=== PATIENT | male | born 1980 | race African-American/Black ===

== ENCOUNTER 2021-05-03 10:19 | Observation (INO) ==
[2021-05-03 10:25] VITALS: BMI 33.2
[2021-05-03] MEDS ORDERED: ASPIRIN 81 MG CHEWTAB PO STA (10:56)
--- NOTE | 2021-05-03 10:56 | DR.CP ---
HPI Time Seen Time Seen by Provider: 05/03/21 10:49 HPI Comment HPI Comment: PATIENT WITH A HISTORY OF DIABETES, HYPERTENSION AND CONGESTIVE HEART FAILURE, COMPLAINS OF ANTERIOR CHEST PAIN CONSTANT FOR 3 DAYS. PAIN SCALE 7/10, PAIN WORSE UPON INSPIRATION AND MOTION OF TORSO. HAS OCCASIONAL DYSPNEA AN D DIZZINESS. Complaint Chief Complaint Doctor Comments: CHEST PAIN Chief Complaint:: Pt c/o chest pain since Monday. He states he has had some dizziness and shortness of breath but denies these complaints at present. Pt sta van pain worsens with movement, coughing and palapation. COVID-19 Coronavirus risk:travel/contact w/high risk person: No Has patient experienced Coronavirus symptoms: No Reviewed Nurses Notes Review: Yes Source History Provided: Patient Mode of Arrival Mode of Arrival: Stretcher Timing Onset of Chief Complaint: 05/28/21 Came on: Gradually Duration Duration: Constant Location Location of Chest Pain: Left Chest Pain Radiation Location: Left Shoulder Context Cardiac Risk Factors: HTN, Diabetes and Other (CONGESTIVE HEART FAILURE) Prehospital Care: None Quality Quality: Sharp Severity Severity: Moderate Modifying Factors Worsens: Breathing and Movement Impoves: Nothing Associated Signs and Symptoms Associated Signs and Symptoms: Shortness of Breath PMH PMH Past Medical History: Yes Past Medical History: CHF, Diabetes and Hypertension Past Surgical History: Yes Past Surgical History Comment: scar tissue removal Family History History of Family Medical Conditions: Yes Family Medical History: Diabetes Mellitus Social History Does patient currently use any type of tobacco product: No Have you used tobacco products in the last 12 months: No Type of Tobacco Use: None Does any household member use tobacco: No Alcohol Use: None Do you use any recreational Drugs:: No Lives With: Other Lives [facility] Travel Risk Coronavirus risk:travel/contact w/high risk person: No Has patient experienced Coronavirus symptoms: No Infectious screening In the last 2 months have you had wt loss of >10#?: NO Have you had fever, night sweats or hemotysis?: No Have you traveled outside the country in the last 6 months?: No Isolation: Standard ROS Review of Systems Constitutional: No Symptoms Reported Eyes: No Symptoms Reported ENTM: No Symptoms Reported Respiratoy: Short of Breath Cardiovascular: Chest Pain Gastrointestinal/Abdominal: No Symptoms Reported Genitourinary: No Symptoms Reported Neurological: No Symptoms Reported Musculoskeletal: No Symptoms Reported Integumentary: No Symptoms Reported Hematologic/Lymphatic: No Symptoms Reported Endocrine: No Symptoms Reported Psychiatric: No Symptoms Reported All Other Systems: Reviewed and Negative PE Vitals Vitals: Temperature 98.3 F Pulse Rate 84 Respiratory Rate 18 Blood Pressure 114/59 O2 Sat by Pulse Oximetry 98 General Limitations: No Limitations General Appearance: Alert and In No Apparent Distress Head Head Exam: Normal Inspection and Atraumatic Eyes Eye exam: Normal Appearance and PERRL ENT ENT Exam: Normal Exam and Normal Oropharynx Chest Chest Inspection: Normal Inspection and Tenderness (PARASTERNAL TENDERNESS T-2 TO T-5) Respiratory Respiratory Exam: Normal Lung Sounds Bilat Respiratory Exam: Bilateral: Clear to Auscultation Cardiovascular Cardiovascular Exam: Regular Rate and Normal Rhythm Pulse: Normal and Radial Edema: Normal Abdominal Exam Abdominal Exam: Normal Inspection, Normal Bowel Sounds and Soft Extremities Extremities Exam: Normal Inspection and Full ROM Back Back Exam: Normal Inspection and Full ROM Psychiatric Psychiatric Exam: Normal Affect and Normal Mood Skin Skin Exam: Warm and Dry MDM Differential Diagnosis Differential Diagnosis: Angina, Chest Wall Pain, Costochondritis, Myocardial Infarction, Pericarditis and Pneumonia COURSE Treatment Treatment: , IV NORMAL SALINE 50ML/HR, GIVEN ASPIRIN 324MG ORALLY, NTG 0.4MG SL, PAIN IMPROVED, TORADOL 30MG IV Reevaluation 1st: Improved Consultation Call Returned: 13:30 Consultation Comments: DISCUSSED FINDINGS WITH DR WYATT FOR OBSERVATION Education/Counseling Educated On: Treatment and Diagnosis ROR Labs Reviewed Laboratory Results Reviewed?: Yes Result Diagrams: 05/03/21 11:10 05/03/21 11:10 Laboratory: WBC 3.7 X10^3/uL (3.6-10.0) 05/03/21 11:10 RBC 4.48 X10^6/uL (4.7-6.0) L 05/03/21 11:10 Hgb 12.6 g/dL (13.5-18.0) L 05/03/21 11:10 Hct 36.6 % (42.0-54.0) L 05/03/21 11:10 MCV 81.8 fL (80.0-100.0) 05/03/21 11:10 MCH 28.0 pg (27.0-34.0) 05/03/21 11:10 MCHC 34.3 g/dL (33.0-35.0) 05/03/21 11:10 RDW 13.5 % (11.6-16.5) 05/03/21 11:10 Plt Count 224 X10^3/uL (150.0-450.0) 05/03/21 11:10 MPV 7.6 fL (7.4-11.0) 05/03/21 11:10 Neut % (Auto) 53.8 % (42.0-75.0) 05/03/21 11:10 Lymph % (Auto) 30.9 % (21.0-51.0) 05/03/21 11:10 [place] % (Auto) 12.3 % (0.0-13.0) 05/03/21 11:10 Eos % (Auto) 2.5 % (0.9-2.9) 05/03/21 11:10 Baso % (Auto) 0.5 % (0.2-1.0) 05/03/21 11:10 Neut # (Auto) 2.0 x10^3/uL (2.2-4.8) L 05/03/21 11:10 Lymph # (Auto) 1.1 X10^3/uL (1.3-2.9) L 05/03/21 11:10 [place] # (Auto) 0.5 x10^3/uL (0.3-0.8) 05/03/21 11:10 Eos # (Auto) 0.1 x10^3/uL (0.0-0.2) 05/03/21 11:10 Baso # (Auto) 0.0 X10^3/uL (0.0-0.1) 05/03/21 11:10 Absolute Nucleated RBC 0.0 /100WBC 05/03/21 11:10 PT 13.0 SECONDS (11.8-14.3) 05/03/21 11:10 INR Target Range - 05/03/21 11:10 INR 1.03 (0.8-1.3) 05/03/21 11:10 D-Dimer 0.30 ug/ml (0.0-0.57) 05/03/21 11:10 Sodium 136 mmol/L (136-145) 05/03/21 11:10 Corrected Sodium 139 mmol/L (136-145) 05/03/21 11:10 Potassium 4.2 mmol/L (3.5-5.1) 05/03/21 11:10 Chloride 101 mmol/L (98-107) 05/03/21 11:10 Carbon Dioxide 28.3 mmol/L (21-32) 05/03/21 11:10 BUN 13 mg/dL (7-18) 05/03/21 11:10 Creatinine 0.90 mg/dL (0.70-1.30) 05/03/21 11:10 Est GFR (MDRD) Af Amer > 60 (>60) 05/03/21 11:10 Est GFR (MDRD) Non-Af > 60 (>60) 05/03/21 11:10 Glucose 223 mg/dL (65-99) H 05/03/21 11:10 Calcium 8.8 mg/dL (8.5-10.1) 05/03/21 11:10 Corrected Calcium TNP 05/03/21 11:10 Total Bilirubin 0.50 mg/dL (0.2-1.0) 05/03/21 11:10 AST 19 Units/L (15-37) 05/03/21 11:10 ALT 29 Units/L (12-78) 05/03/21 11:10 Alkaline Phosphatase 50 Units/L (46-116) 05/03/21 11:10 Troponin I < 0.02 ng/mL (0-1.5) 05/03/21 14:29 B-Natriuretic Peptide 17.4 pg/mL (0-79) 05/03/21 11:10 Total Protein 8.3 g/dL (6.4-8.2) H 05/03/21 11:10 Albumin 3.5 g/dL (3.4-5.0) 05/03/21 11:10 Globulin 4.8 g/dL (2.5-4.5) H 05/03/21 11:10 Albumin/Globulin Ratio 0.7 Ratio (1.1-2.1) L 05/03/21 11:10 XRAY X-ray Results: PORT CHEST XRAY C/W NO ACUTE PROCESS EKG Rate: 92 [place]: Normal Rhythm: NSR and ST ST: Nonsp (EARLY REPOLARIZATION) Opioid Opioid Risk Tool Age ([place] box if 16-45): No History of Preadolescent Sexual Abuse: No Total: 0 Total Score Risk Category: Low Risk Copyright: Uribe LR predicting aberrant behaviors Diagnosis Discharge Problem: Acute chest pain
[2021-05-03] MEDS ORDERED: NS 1000 ML 1,000 ML IV STA (10:59)
[2021-05-03] MEDS ORDERED: ASPIRIN 81 MG CHEWTAB ONE (11:09)
[2021-05-03] MEDS ORDERED: NS 1000 ML 1,000 ML ONE (11:10)
[2021-05-03] MEDS ORDERED: NITROSTAT ONE (11:17)
[2021-05-03] MEDS: NITROSTAT SL PRN ×2 (11:18→11:33)
--- NOTE | 2021-05-03 11:20 | RAD ---
HISTORYDYSPNEASTUDYCHEST, 1 VIEWCOMPARISONNone available.FINDINGSThe trachea is midline. The cardiac silhouette is borderline enlarged.The lungs are clear without focal infiltrate or effusion.The bony thorax is unremarkable.IMPRESSIONNo acute cardiopulmonary disease.Electronically signed by: SADIE MUHAMMAD III (May 03, 2021 11:18:32)
[2021-05-03 11:38] LABS: BASOPHILS % (AUTO) 0.5 % (0.2-1.0); EOSINOPHILS # (AUTO) 0.1 x10^3/uL (0.0-0.2); EOSINOPHILS % (AUTO) 2.5 % (0.9-2.9); HEMATOCRIT 36.6 % (42.0-54.0); HEMOGLOBIN 12.6 g/dL (13.5-18.0); LYMPHOCYTES # (AUTO) 1.1 X10^3/uL (1.3-2.9); LYMPHOCYTES % (AUTO) 30.9 % (21.0-51.0); MEAN CORPUSCULAR HGB CONC 34.3 g/dL (33.0-35.0); MEAN CORPUSCULAR VOLUME 81.8 fL (80.0-100.0); MEAN PLATELET VOLUME 7.6 fL (7.4-11.0); MONOCYTES # (AUTO) 0.5 x10^3/uL (0.3-0.8); MONOCYTES % (AUTO) 12.3 % (0.0-13.0); NEUTROPHILS % (AUTO) 53.8 % (42.0-75.0); PLATELET COUNT 224 X10^3/uL (150.0-450.0); RED BLOOD COUNT 4.48 X10^6/uL (4.7-6.0); RED CELL DISTRIBUTION WIDTH 13.5 % (11.6-16.5); WHITE BLOOD COUNT 3.7 X10^3/uL (3.6-10.0)
[2021-05-03 11:53] LABS: ALANINE AMINOTRANSFERASE 29 Units/L (12-78); ALBUMIN 3.5 g/dL (3.4-5.0); ALKALINE PHOSPHATASE 50 Units/L (46-116); ASPARTATE AMINO TRANSFERASE 19 Units/L (15-37); BLOOD UREA NITROGEN 13 mg/dL (7-18); CALCIUM 8.8 mg/dL (8.5-10.1); CARBON DIOXIDE 28.3 mmol/L (21-32); CHLORIDE 101 mmol/L (98-107); COR NA(FOR HYPERGLY) 139 mmol/L (136-145); SODIUM 136 mmol/L (136-145); TOTAL PROTEIN 8.3 g/dL (6.4-8.2); TROPONIN I < 0.02 ng/mL (0-1.5); eGFR NON BLACK RACES > 60 (>60)
[2021-05-03] MEDS ORDERED: REGEN-COV VIAL 10 ML, DRUG FILTER EXTENSION SET * 1 EA in NS 100 ML IV 100 ML IV ONE ×2 (13:24)
[2021-05-03] MEDS ORDERED: TORADOL 30 MG VIAL IVP STA (14:17)
[2021-05-03] MEDS ORDERED: LOPRESSOR TAB 50 MG PO ONE (14:17)
[2021-05-03] MEDS ORDERED: TORADOL 30 MG VIAL IVP PRN (15:47)
[2021-05-03] MEDS ORDERED: NS 1000 ML 1,000 ML IV SCH (16:00)
[2021-05-03] MEDS ORDERED: GLUCOPHAGE ONE (20:45)
[2021-05-03] MEDS ORDERED: ZESTRIL TAB 20 MG ONE (20:46)
[2021-05-03] MEDS: ALDACTONE TAB 25 MG PO SCH (20:50)
[2021-05-03] MEDS: COREG TAB 12.5 MG PO SCH (20:50)
[2021-05-03] MEDS: GLUCOPHAGE PO SCH (20:50)
[2021-05-03] MEDS ORDERED: ZESTRIL TAB 20 MG PO SCH (21:00)
[2021-05-04] MEDS ORDERED: GLUCOPHAGE ONE (08:25)
[2021-05-04] MEDS ORDERED: ZESTRIL TAB 20 MG ONE (08:25)
[2021-05-04] MEDS: GLUCOPHAGE PO SCH (08:36)
[2021-05-04] MEDS ORDERED: ZESTRIL TAB 10 MG ONE (08:44)
[2021-05-04] MEDS: COREG TAB 12.5 MG PO SCH (08:46)
[2021-05-04] MEDS: ALDACTONE TAB 25 MG PO SCH (08:46)
[2021-05-04 08:49] VITALS: BP 119/59
[2021-05-04] MEDS ORDERED: ASPIRIN 81 MG CHEWTAB PO SCH (09:00)
[2021-05-04] MEDS ORDERED: LASIX PO SCH (09:00)
[2021-05-04] MEDS ORDERED: ZESTRIL TAB 10 MG PO SCH (09:00)
[2021-05-04] MEDS ORDERED: ACTOS PO SCH (09:00)
[2021-05-04] MEDS ORDERED: LOVENOX INJ 40 MG SYR SC SCH (10:00)
== END 2021-05-04 10:50 | disposition home or self-care (01) ==
LOC: MED/SURG 10:19 → ER 10:19 → MED/SURG 17:01
PROVIDERS: ADMIT Obstetrics & Gynecology Obstetrics; ATTEND Obstetrics & Gynecology Obstetrics
DX: R07.89 Other chest pain; E11.65 Type 2 diabetes mellitus with hyperglycemia; I10 Essential (primary) hypertension